=== PATIENT | female | born 2000 | race Caucasian/White ===

== ENCOUNTER → 2019-06-16 | Emergency (ER) | payer OTHER ==
[~2019-06-16] VITALS: Ht 177.8 cm; Wt 158.8 kg
== END ==
LOC: ED 22:14
DX: S61.211A Laceration without foreign body of left index finger without damage to nail, initial encounter (principal); W26.8XXA Contact with other sharp object(s), not elsewhere classified, initial encounter; F17.200 Nicotine dependence, unspecified, uncomplicated
CPT/HCPCS: 12001; 99282-25

== ENCOUNTER 2019-06-23 10:04 | Emergency (ER) | payer OTHER ==
[~2019-06-23] VITALS: Ht 177.8 cm; Wt 158.8 kg
--- OUTSIDE RECORDS SUMMARY | 2019-06-23 10:08 | XMS ---
PreManage Notification: LADONNA MEJIA [employer] Specialist Events No recent Security Events currently on file CRITERIA MET - [facility] - 2 Visits in 30 Days CARE PROVIDERS CRYSTAL SHARMA Nurse Practitioner: Family Current PHONE: [phone] JEREL HASSAN Primary Care Current PHONE: Unknown KATLIN MALHOTRA [facility] Primary Care 03/12/2014-[facility] PRACTICE PHONE: [phone] Chacha has no Care Guidelines for this patient. E.D. VISIT COUNT ([address] [facility] [place] 2 [facility] TOTAL 3 NOTE: Visits indicate total known visits. ED/UCC VISIT TRACKING (12 MO.) 06/23/2019 10:05 [facility] [place] TYPE: Emergency COMPLAINT: - L INDEX FINGER POSS INFECTION 06/16/2019 22:14 [facility] [place] TYPE: Emergency COMPLAINT: - LT FINGER INJURY,WORKERS COMP DIAGNOSES: - Contact with other sharp object(s), NEC, initial encounter - Laceration w/o fb of l idx fngr w/o damage to nail, init - Nicotine dependence, unspecified, uncomplicated [facility] [place] [facility] DIAGNOSES: - Oth fracture of right lower leg, init for clos fx - Ankle Pain - Unspecified internal derangement of right knee INPATIENT VISIT TRACKING (12 MO.) No inpatient visits to display in this time frame [email or web address]
== END 2019-06-23 11:18 | disposition home or self-care (01) ==
LOC: ED 10:04
DX: S61.211D Laceration without foreign body of left index finger without damage to nail, subsequent encounter (principal); X58.XXXD Exposure to other specified factors, subsequent encounter

== ENCOUNTER 2021-04-25 13:03 | Emergency (ER) | payer BC ==
[~2021-04-25] VITALS: Ht 177.8 cm; Wt 195.0 kg
[2021-04-25] MEDS ORDERED: ADVIL200 MG PO (14:31)
== END 2021-04-25 15:40 | disposition home or self-care (01) ==
LOC: ED 13:03
DX: U07.1 COVID-19 (principal); F17.200 Nicotine dependence, unspecified, uncomplicated
CPT/HCPCS: 99284; U0003

== ENCOUNTER 2024-04-22 13:39 | Emergency (ER) | payer BC ==
[~2024-04-22] VITALS: Ht 177.8 cm; Wt 200.5 kg
[~2024-04-22 13:39] MED LIST: ADVIL200 MG PO; CYCLOBENZAPRINE10 MG PO
[2024-04-22] MEDS ORDERED: METHOCARBAMOL500 MG PO (15:33)
[2024-04-22 15:39] VITALS: BP 131/67
== END 2024-04-22 15:39 | disposition home or self-care (01) ==
LOC: ED 13:39
DX: M54.50 Low back pain, unspecified (principal); F17.200 Nicotine dependence, unspecified, uncomplicated
CPT/HCPCS: 99283